=== PATIENT | male | born 1985 | race American Indian/Alaskan Native ===

== ENCOUNTER 2016-09-29 11:47 | Emergency (ER) | payer OTHER ==
[2016-09-29 12:08] VITALS: BP 137/82
--- NOTE | 2016-09-29 14:38 | Emergency Department Report ---
- General Chief Complaint: Upper Respiratory Infection Stated Complaint: DIFF BREATHING/SORE THROAT/COLD/CHILLS/ Time Seen by Provider: 09/29/16 13:48 Source: patient Mode of arrival: Ambulatory Limitations: No Limitations - History of Present Illness Initial Comments: 31-year-old male presents with 5 days of cough and nasal rhinorrhea, productive cough of greenish yellow sputum, mild queasiness, mild wheezing and body aches. Patient states several of his coworkers have been sick. Denies any recent travel. No chest pain no palpitations, shortness of breath after coughing fits. Subjective fever chills. Also complaining of right-sided earache MD Complaint: fever, cough, rhinorrhea, nasal congestion, sinus pain Onset/Timin -: days(s) Severity: moderate Severity scale (0 -10): 6 Quality: aching Improves With: nothing - Related Data Home Medications Medication Instructions Recorded Confirmed Last Taken Levothyroxine [Synthroid] 09/29/16 Unknown Previous Rx's Medication Instructions Recorded Last Taken Type ALBUTEROL Inhaler [Proair] 1 puff IH Q4H PRN #1 inha 09/29/16 Unknown Rx Azithromycin [Zithromax Z-ANGELA] 250 mg PO QDAY #6 tablet 09/29/16 Unknown Rx Fluticasone [Flonase] 1 spray NS QDAY #1 bottle 09/29/16 Unknown Rx Loratadine [Claritin] 10 mg PO DAILY #7 tablet 09/29/16 Unknown Rx Naproxen [Naprosyn TAB] 500 mg PO BID PRN #20 tablet 09/29/16 Unknown Rx Neomy/Polymyx B/Hc (Otic) Soln 4 drops OTIC TID #1 bottle 09/29/16 Unknown Rx [Cortisporin (Otic) Soln] Phenylephrine/Dm/Acetaminop/GG 10 ml PO Q6H PRN #1 liquid 09/29/16 Unknown Rx [Mucinex Fast-Max Sev Cold Liq] Allergies Allergy/AdvReac Type Severity Reaction Status Date / Time No Known Allergies Allergy Unverified 09/29/16 12:08 ED Review of Systems ROS: Stated complaint: DIFF BREATHING/SORE THROAT/COLD/CHILLS/ Other details as noted in HPI Constitutional: denies: chills, fever Eyes: denies: eye pain, eye discharge, vision change ENT: denies: ear pain, throat pain Respiratory: denies: cough, shortness of breath, wheezing Cardiovascular: denies: chest pain, palpitations Endocrine: no symptoms reported Gastrointestinal: denies: abdominal pain, nausea, diarrhea Genitourinary: denies: urgency, dysuria Musculoskeletal: denies: back pain, joint swelling, arthralgia Skin: denies: rash, lesions Neurological: denies: headache, weakness, paresthesias Psychiatric: denies: anxiety, depression Hematological/Lymphatic: denies: easy bleeding, easy bruising ED Past Medical Hx - Past Medical History Previous Medical History?: Yes Additional medical history: Graves disease - Surgical History Past Surgical History?: Yes Additional Surgical History: Tonsil removed, left leg pain - Social History Smoking Status: Current Every Day Smoker Substance Use Type: Alcohol, Non Opiate Pain, Prescribed - Medications Home Medications: Home Medications Medication Instructions Recorded Confirmed Last Taken Type ALBUTEROL Inhaler [Proair] 1 puff IH Q4H PRN #1 inha 09/29/16 Unknown Rx Azithromycin [Zithromax Z-ANGELA] 250 mg PO QDAY #6 tablet 09/29/16 Unknown Rx Fluticasone [Flonase] 1 spray NS QDAY #1 bottle 09/29/16 Unknown Rx Levothyroxine [Synthroid] 09/29/16 Unknown History Loratadine [Claritin] 10 mg PO DAILY #7 tablet 09/29/16 Unknown Rx Naproxen [Naprosyn TAB] 500 mg PO BID PRN #20 tablet 09/29/16 Unknown Rx Neomy/Polymyx B/Hc (Otic) Soln 4 drops OTIC TID #1 bottle 09/29/16 Unknown Rx [Cortisporin (Otic) Soln] Phenylephrine/Dm/Acetaminop/GG 10 ml PO Q6H PRN #1 liquid 09/29/16 Unknown Rx [Mucinex Fast-Max Sev Cold Liq] ED Physical Exam - General Limitations: No Limitations General appearance: alert, in no apparent distress - Head Head exam: Present: atraumatic, normocephalic - Eye Eye exam: Present: normal appearance, PERRL, EOMI - ENT ENT exam: Present: mucous membranes moist, other (mild right-sided otitis externa sternal auditory canal injected, TM injected right side) - Neck Neck exam: Present: normal inspection - Respiratory Respiratory exam: Present: normal lung sounds bilaterally. Absent: respiratory distress - Cardiovascular Cardiovascular Exam: Present: regular rate, normal rhythm. Absent: systolic murmur, diastolic murmur, rubs, gallop - GI/Abdominal GI/Abdominal exam: Present: soft, normal bowel sounds - Rectal Rectal exam: Present: deferred - Extremities Exam Extremities exam: Present: normal inspection - Back Exam Back exam: Present: normal inspection - Neurological Exam Neurological exam: Present: alert, oriented X3 - Psychiatric Psychiatric exam: Present: normal affect, normal mood - Skin Skin exam: Present: warm, dry, intact, normal color. Absent: rash ED Course Vital Signs 09/29/16 12:04 Temperature 98.6 F Pulse Rate 75 Respiratory 20 Rate Blood Pressure 137/82 O2 Sat by Pulse 98 Oximetry ED Medical Decision Making - Medical Decision Making A/P: Acute bronchitis 1-naproxen, Flonase, Z-Angela, pro-air inhaler, Claritin 2-patient does not have primary doctor, will refer to PMD 3-advised patient to return to the ED if he experiences any chest pain and severe palpitations shortness of breath with fevers above 101 persistently with nausea and vomiting Critical care attestation.: If time is entered above; I have spent that time in minutes in the direct care of this critically ill patient, excluding procedure time. ED Disposition Clinical Impression: Upper respiratory infection Qualifiers: URI type: unspecified viral URI Qualified Code(s): J06.9 - Acute upper respiratory infection, unspecified Disposition: DISCHARGED TO HOME OR SELFCARE Is pt being admited?: No Does the pt Need Aspirin: No Condition: Stable Instructions: Upper Respiratory Infection (ED) Prescriptions: Loratadine [Claritin] 10 mg PO DAILY #7 tablet Neomy/Polymyx B/Hc (Otic) Soln [Cortisporin (Otic) Soln] 4 drops OTIC TID #1 bottle Fluticasone [Flonase] 1 spray NS QDAY #1 bottle Phenylephrine/Dm/Acetaminop/GG [Mucinex Fast-Max Sev Cold Liq] 10 ml PO Q6H PRN #1 liquid PRN Reason: Cough Naproxen [Naprosyn TAB] 500 mg PO BID PRN #20 tablet PRN Reason: Pain ALBUTEROL Inhaler [Proair] 1 puff IH Q4H PRN #1 inha PRN Reason: Shortness Of Breath Azithromycin [Zithromax Z-ANGELA] 250 mg PO QDAY #6 tablet Referrals: MARVA MORGAN DR. [Other] - 3-[address] [facility] [place] [Outside] - 3-5 Days ANN FARFAN MD [Staff Physician] - 3-5 Days Forms: Accompanied Note, Work/School Release Form(ED) Time of Disposition: 14:35
== END 2016-09-29 15:24 | disposition home or self-care (01) ==
LOC: ED 11:47
DX: J06.9 Acute upper respiratory infection, unspecified (principal); F17.200 Nicotine dependence, unspecified, uncomplicated; Z90.89 Acquired absence of other organs
CPT/HCPCS: 99282